=== PATIENT | female | born 1930 | race Caucasian/White ===

== ENCOUNTER 2018-08-06 22:16 | Observation (INO) ==
--- NOTE | 2018-08-06 22:40 | Emergency Department Note ---
Disposition Clinical Impression: CHF (congestive heart failure) Qualifiers: Heart failure type: unspecified Heart failure chronicity: acute on chronic Qualified Code(s): I50.9 - Heart failure, unspecified Disposition: Admitted As Inpatient Referrals: Jorge L Salter MD [Primary Care Provider] - Forms: ED Satisfaction Letter Time of Disposition: 01:13 General Adult HPI - General Chief complaint: ED Shortness of Breath/Dyspnea Stated complaint: "High BP/EJ/Weakness" Time Seen by Provider: 08/06/18 22:30 Source: family Mode of arrival: ambulatory Limitations: no limitations - History of Present Illness HPI Narrative: This is an 88-year-old female with a history of CHF brought to the emergency department by her grandson because of worsening shortness of breath starting about 7 days ago, and poorly controlled hypertension starting about 4 weeks ago. Her grandson states that she was taken off amlodipine because of pedal edema, in the edema has improved but her blood pressure has not been well controlled. He states that she has dyspnea on exertion after walking only about 30 feet. Pain Scale: 8 - Related Data Home Medications Medication Instructions Recorded Confirmed Amlodipine [Norvasc] 2.5 mg PO DAILY 10/04/15 04/20/16 Aspirin [Adult Low Dose Aspirin EC] 81 mg PO DAILY 10/04/15 04/20/16 Levothyroxine [Synthroid] [place] [address]/04/15 04/20/16 Metoprolol [Lopressor] 12.5 mg PO BID 10/04/15 04/20/16 [place]-3S/Dha/Epa/Fish Oil [Fish 1,200 mg PO DAILY 10/04/15 04/20/16 Oil 1,200 mg Softgel] Isosorbide MONOnitrate [Isosorbide 30 mg PO HS 10/29/15 04/20/16 Mononitrate] Cholecalciferol (Vitamin D3) 1,000 unit PO DAILY 03/23/16 04/20/16 [Vitamin D3] Clopidogrel [Plavix] 75 mg PO DAILY 04/20/16 04/20/16 Ferrous Sulfate [Iron Supplement] 325 mg PO DAILY 04/20/16 04/20/16 Furosemide [Lasix] 20 mg PO BID PRN 04/20/16 04/20/16 Previous Rx's Medication Instructions Recorded Omeprazole [PriLOSEC] 40 mg PO Q12HR #60 capsule. 03/27/16 Allergies Allergy/AdvReac Type Severity Reaction Status Date / Time [id number] Reductase Allergy Cramping Verified 03/23/16 17:29 Inhibitor of the [Statins] Muscles Sulfa (Sulfonamide Allergy See Verified 03/23/16 17:29 Antibiotics) Comments All systems ED: reviewed and negative except as stated. Cardiovascular: Reports: dyspnea on exertion, edema, other (Poorly controlled hypertension) Respiratory: Reports: dyspnea Past Medical History - Past Medical History Medical history: Reports: arthritis, CHF, coronary artery disease, GERD, hyperlipidemia, hypertension, myocardial infarction, renal disease, thyroid disease Surgical history: Reports: angioplasty/stent, cataract Psychiatric history: Reports: no psych history - Social History Smoking Status: Former smoker Smokeless Tobacco Status: No Alcohol use: Reports: none Drug use: Reports: none Physical Exam - General Limitations: no limitations General appearance: alert, in distress (In mild distress from shortness of breath) - Head Head exam: atraumatic, normocephalic, normal inspection - Eye Eye exam: Present: normal appearance, PERRL, EOMI - Chest Chest inspection: Present: normal inspection, symmetric chest wall rise - Respiratory Respiratory exam: Present: other (There are bibasilar crackles). Absent: respiratory distress, wheezes - Cardiovascular Cardiovascular exam: Present: regular rate, normal rhythm, normal heart sounds - Abdominal Exam Abdominal exam: Present: soft, Non-Tender. Absent: tenderness, distention, guarding, rebound, rigidity - Extremities Exam Extremities exam: Present: normal inspection, normal capillary refill, pedal edema (2+ pedal edema bilaterally at the malleoli, 1+ at the mid calf). Absent : tenderness - Neurological Exam Neurological exam: Present: alert, oriented X3 - Psychiatric Psychiatric exam: Present: normal affect, normal mood - Skin Skin exam: Present: warm, dry, intact, normal color Course Course Narrative: This is an 88-year-old female who clinically appears to be in CHF. Vital Signs Temperature 98.2 F 08/06/18 22:25 Pulse Rate 60 08/06/18 22:25 Respiratory Rate 16 08/06/18 22:25 Blood Pressure 200/101 08/06/18 22:25 O2 Sat by Pulse Oximetry 88 08/06/18 22:25 Temperature 98.2 F 08/06/18 22:31 Pulse Rate 64 08/07/18 01:04 Respiratory Rate 16 08/07/18 01:04 Blood Pressure 216/78 08/07/18 01:04 O2 Sat by Pulse Oximetry 95 08/07/18 01:04 Oxygen Delivery Oxygen Delivery Room Air Medical Decision Making - MDM Narrative Medical decision making narrative: This is an 88-year-old female with a CHF exacerbation Afterload reduction was attempted with sublingual nitroglycerin with essentially no success. As a result, she was switched to nitroglycerin infusion. Furosemide and enalaprilat were also given for afterload reduction and diuresis. I discussed her case with the on-call hospitalist, who accepted her for admission - Lab Data Result diagrams: 08/06/18 22:36 08/06/18 22:36 Lab Results 08/06/18 08/06/18 Range/Units 22:36 22:36 WBC 7.3 (4.3-11.1) K/mcL RBC 4.49 (3.82-4.97) M/mcL Hgb 13.9 (11.5-15.4) g/dL Hct 41.5 (35.3-44.9) % MCV 92.4 (83.0-100.0) fL MCH 31.0 (28.0-33.3) pg MCHC 33.5 (31.6-35.5) g/dL RDW 12.9 (11.5-14.5) % Plt Count 218 (140-400) K/mcL MPV 9.3 L (9.4-12.4) fL Immature Gran % 0.3 (0-4) % Seg Neutrophils % 51.8 % Lymphocytes % 33.1 % Monocytes % 10.6 % Eosinophils % 3.5 % Basophils % 0.7 % Neutrophils # 3.8 (1.6-8.9) K/mcL Lymphocytes # 2.4 (0.6-4.6) K/mcL Monocytes # 0.8 (0.0-1.3) K/mcL Eosinophils # 0.3 (0.0-0.6) K/mcL Basophils # 0.1 (0.0-0.2) K/mcL Sodium 133 L (136-145) mEq/L Potassium 4.3 (3.5-5.1) mEq/L Chloride 101 (98-107) mEq/L Carbon Dioxide 24 (23-29) mEq/L BUN 25 H (8-23) mg/dL Creatinine 0.99 (0.60-1.20) mg/dL Est GFR ( Amer) > 60 (> 60) Est GFR (Non-Af Amer) 53 L (> 60) BUN/Creatinine Ratio 25 (6-26) Glucose 110 H (70-105) mg/dL Calculated Osmolality 281 (280-300) Calcium 9.5 (8.6-10.3) mg/dL Troponin I < 0.03 (< 0.04) ng/mL - EKG Data EKG #1 EKG attestation: Yes I reviewed and interpreted this EKG. EKG results narrative: ECG showed sinus bradycardia, 49 bpm, left bundle branch block, slight ST depressions in leads 2 and aVF as well as V5 and V6, similar to prior dated 10/2015 Critical Care Time Critical Care Time: Yes Total Critical Care Time: 20 Attestation: 20 minutes of critical care time was invested independent of separately billable procedures
[2018-08-06] MEDS: Nitroglycerin 0.4 MG TAB.SUBL SL PRN ×3 (22:42→23:08)
[2018-08-06 23:06] LABS: Basophils # 0.1 K/mcL (0.0-0.2); Basophils % 0.7 %; Eosinophils # 0.3 K/mcL (0.0-0.6); Eosinophils % 3.5 %; Hematocrit 41.5 % (35.3-44.9); Hemoglobin 13.9 g/dL (11.5-15.4); Immature Granulocytes % 0.3 % (0-4); Lymphocytes # 2.4 K/mcL (0.6-4.6); Lymphocytes % 33.1 %; Mean Corpuscular HGB Conc 33.5 g/dL (31.6-35.5); Mean Corpuscular Volume 92.4 fL (83.0-100.0); Mean Platelet Volume 9.3 fL (9.4-12.4); Monocytes # 0.8 K/mcL (0.0-1.3); Monocytes % 10.6 %; Neutrophils # 3.8 K/mcL (1.6-8.9); Platelet Count 218 K/mcL (140-400); Red Blood Count 4.49 M/mcL (3.82-4.97); Red Cell Distribution Width 12.9 % (11.5-14.5); Segmented Neutrophils % 51.8 %
[2018-08-06 23:26] LABS: BUN/Creatinine Ratio 25 (6-26); Blood Urea Nitrogen 25 mg/dL (8-23); Calcium 9.5 mg/dL (8.6-10.3); Carbon Dioxide 24 mEq/L (23-29); Chloride 101 mEq/L (98-107); Glucose 110 mg/dL (70-105); Osmolality,Calculated 281 (280-300); Potassium 4.3 mEq/L (3.5-5.1); Sodium 133 mEq/L (136-145); eGFR For Non-African Americans 53 (> 60)
[2018-08-06 23:28] LABS: Troponin I < 0.03 ng/mL (< 0.04)
[2018-08-07] MEDS: Nitroglycerin 0.4 MG TAB.SUBL SL PRN (00:14)
[2018-08-07] MEDS ORDERED: Nitroglycerin 0.4 MG TAB.SUBL SL PRN (00:23)
[2018-08-07] MEDS ORDERED: Furosemide 40 MG/4 ML VIAL IVP ONE (00:24)
[2018-08-07] MEDS ORDERED: Nitroglycerin 25 MG/250 ML INFUS..BTL IVC SCH (01:15)
[2018-08-07] MEDS ORDERED: Naloxone 0.4 MG/ML INJ IVP PRN (01:20)
--- NOTE | 2018-08-07 01:35 | Internal Med History&Physical ---
<Eric Whitfield - Last Filed: 08/07/18 01:25> Date of Encounter: 08/07/18 Time of Encounter: 01:25 Internal Medicine - H&P: HPI Chief complaint: sob Admitted From: Home Plans for Post Hospital Care: Home History of present illness: Ms. Ross is a 88 year old female with hx of chf, cad, htn presents with cc of sob that started one week ago. Patient reports chornic LE edema for past couple years which has worsened over the last one month gradually. She reports orthopnea, cough, chest tightness, exertional dyspnea while waking a few feet and reports blurry vision, headache. She denies slurred speech, loss of balance , falls, weakness or numbness in any extremity but reports tingling in b/l fingertips. She take 40mg of lasix at home but only occasionally. Drinks 4x16 ounces of water daily and 4 cups of coffee. Her BP has been uncontrolled for the past month after she was taken off of amlodipine by her pcp because of worsening LE edema. Before stopping amlodipine BP was 140-150 systolics. On presentation today it is 200-220 systolic. She also is requiring O2. Patient was given vasotec and lasix in ED without response to BP and started on nitroglycerin drip. Past Med Surg Social Fam HX - Past Medical History Medical history: arthritis, CHF, coronary artery disease, GERD, hyperlipidemia, hypertension, myocardial infarction, renal disease, thyroid disease Additional medical history: vascular surgery at [facility] in October 2015 Psychiatric history: no psych history - Past Surgical History Surgical History: angioplasty/stent, cataract Additional surgical history: cataract surgery. - Social History Smoking Status: Former smoker Smokeless Tobacco Status: No Alcohol use: none Drug use: none - Family History Father Living Status: Hx Family Cardiac Disorders: Yes Internal Medicine - H&P: Meds Amlodipine [Norvasc] 2.5 mg PO DAILY 10/04/15 [History] Aspirin [Adult Low Dose Aspirin EC] 81 mg PO DAILY 10/04/15 [History] Levothyroxine [Synthroid] 75 mcg PO 0630 10/04/15 [History] Metoprolol [Lopressor] 12.5 mg PO BID 10/04/15 [History] [place]-3S/Dha/Epa/Fish Oil [Fish Oil 1,200 mg Softgel] 1,200 mg PO DAILY [History] Isosorbide MONOnitrate [Isosorbide Mononitrate] 30 mg PO HS 10/29/15 [History] Cholecalciferol (Vitamin D3) [Vitamin D3] 1,000 unit PO DAILY 03/23/16 [History] Omeprazole [PriLOSEC] 40 mg PO Q12HR #60 capsule. 03/27/16 [Rx] Clopidogrel [Plavix] 75 mg PO DAILY 04/20/16 [History] Ferrous Sulfate [Iron Supplement] 325 mg PO DAILY 04/20/16 [History] Furosemide [Lasix] 20 mg PO BID PRN 04/20/16 [History] 3 Allergy/AdvReac Type Severity Reaction Status Date / Time [id number] Reductase Allergy Cramping Verified 03/23/16 17:29 Inhibitor of the [Statins] Muscles Sulfa (Sulfonamide Allergy See Verified 03/23/16 17:29 Antibiotics) Comments All Systems PM: A 10-system review of systems was performed and is negative for pertinent findings except as documented above in the HPI. Review of systems: Constitutional: Denies fever, chills HEENT: Reports headache, blurry vision Denies trauma, eye discharge, ear pain, ear discharge neck pain, sore throat, rhinorrhea Heart: reports chest tightness and LE edema. Denies palpitations Lungs: reports shortness of breath cough Abdomen: Denies abdominal pain nausea vomiting diarrhea MSK: Denies back pain, falls, joint pain Kidney: Denies dysuria, hematuria Skin: Denies rash, ulcers Neuro: Denies numbness and tingling Psych: denies axniety, depression - Constitutional Vitals: Temp Pulse Resp BP Pulse Ox 98.2 F 64 16 216/78 95 08/06/18 22:31 08/07/18 01:04 08/07/18 01:04 08/07/18 01:04 08/07/18 01:04 Exam: General: pleasant, mild distress HEENT: Head atraumatic, normocephalic, EOMI, PERRL, absent ear discharge or trauma, Moist Mucous Membranes, uvula midline Neck: nontender to palpation, absent lymphadenopathy, Cardiovascualr: sinus bradycardia with no murmur, absent gallops or rubs, 3+ pedal edema b/l, radial pulses 2 out of 4 Lungs: b/l crackles, mild respiratory distress, tachypenia Abdomen: Soft nontender, nondistended positive bowel sounds, absent hepatomegaly Skin: warm and dry, absent rash, absent open wounds and nodules MSK: absent clubbing, cyanosis, joints without swelling Neuro: Cranial nerves II through XII intact, UE and LE sensation equal bilaterally except for decreased sensation in b/l fingertips, UE and LEstrength 4/5, alert oriented 3, He Psych: good insight and judgment Internal Med - H&P Results - Labs CBC & Chem 7: 08/06/18 22:36 08/06/18 22:36 - Assessment and plan (1) Acute respiratory failure with hypoxia Current Visit: Yes Status: Acute Assessment and plan: 2nd to acute on chornic CHF exacerbation, diastolic cxr shows enlarged heart with pulmonary edema and left pleural effusion. lung exam: bibasilar crackles requiring 1L O2 supplementation plan: continue O2 supplementation will start diuresis with lasix 40mg IV BID. (2) CHF exacerbation Current Visit: Yes Status: Acute Assessment and plan: acute on chronic diastolic chf echocardiogram 09/2015 showed LVEF 60% with normal LV structure and funciton, mild LV diastolic dysfunction, normal right ventricular structure, no pulmonary hypertension patient does not follow low salt fluid restricted diet tropoinin <0.03 EKG sinus bradycardia rate [address] depressions in II, II, V4,V5,V6 similar to EKG in 2016 order echocardiogram, fluid restricted diet, IV lasix, strict I/O cardiac diet. Qualifiers: Heart failure type: diastolic Qualified Code(s): I50.33 - Acute on chronic diastolic (congestive) heart failure (3) Hypertensive urgency Current Visit: Yes Status: Acute Assessment and plan: BP systolic 200s will start on nitro drip. goal BP is 180 in the next 4 hours. Will avoid drastic reduction. Continue home imdur and metoprolol. (4) CAD (coronary artery disease) Current Visit: Yes Status: Chronic Assessment and plan: hx of CAD s/p [place] 2007 with PCI x 1 stent continue aspirin, bblocker. not on statin due to muscle cramping Qualifiers: Coronary Disease-Associated Artery/Lesion type: [place] artery [place] vs. transplanted heart: [place] heart Associated angina: without angina Qualified Code(s): I25.10 - Atherosclerotic heart disease of [place] coronary artery without angina pectoris (5) CKD (chronic kidney disease), stage III Current Visit: Yes Status: Chronic Assessment and plan: stable repeat BMP (6) DVT prophylaxis Current Visit: Yes Status: Acute Assessment and plan: heparin SQ (7) Hypothyroidism Current Visit: Yes Status: Chronic Assessment and plan: continue home levothyroxine Qualifiers: Hypothyroidism type: unspecified Qualified Code(s): E03.9 - Hypothyroidism , unspecified - Time Spent With Patient Total time spent is greater than 50% in coordination of care (as documented) at patient's floor/unit and/or counseling patient: <Carlos Humphries - Last Filed: 08/07/18 02:39> Date of Encounter: 08/07/18 Internal Medicine - H&P: HPI History of present illness: Ms. Ross is a 88 year old female All Systems PM: A 10-system review of systems was performed and is negative for pertinent findings except as documented above in the HPI. - Constitutional Vitals: Temp Pulse Resp BP Pulse Ox 98.2 F 64 16 216/78 95 08/06/18 22:31 08/07/18 01:04 08/07/18 01:04 08/07/18 01:04 08/07/18 01:04 Internal Med - H&P Results - Labs CBC & Chem 7: 08/06/18 22:36 08/06/18 22:36 Labs: Short CBC 08/06/18 Range/Units 22:36 WBC 7.3 (4.3-11.1) K/mcL Hgb 13.9 (11.5-15.4) g/dL Hct 41.5 (35.3-44.9) % Plt Count 218 (140-400) K/mcL Neutrophils # 3.8 (1.6-8.9) K/mcL BMP 08/06/18 22:36 Sodium 133 L Potassium 4.3 Chloride 101 Carbon Dioxide 24 BUN 25 H Creatinine 0.99 Glucose 110 H Calcium 9.5 Cardiac Enzymes 08/06/18 Range/Units 22:36 Troponin I < 0.03 (< 0.04) ng/mL - Impressions ITS Impressions Chest X-Ray 08/06/18 22:36 IMPRESSION: CHF with left pleural effusion. Prominent right hilum which may reflect adenopathy. D/ / Codey Steen MD / Codey Steen MD Interpreting Provider: Codey Steen MD - Time Spent With Patient Total time spent is greater than 50% in coordination of care (as documented) at patient's floor/unit and/or counseling patient: - Attending Attestation Patient seen and examined. Chart reviewed. Case discussed with resident. Agree with assessment and plan. In short patient is a 88-year-old female with past medical history of hypertension, CK D stage III, coronary artery disease status post PCI approximately 10 years ago, and right carotid endarterectomy in 2016 and hypothyroidism who presents to the ED due to worsening shortness of breath over the past week. Patient also has been having difficulty controlling her blood pressure over the past month since being taken off amlodipine due to side effects of lower extremity edema. Patient has noted progressive dyspnea on exertion. Although she states she is compliant with her medications, she has not taken her Lasix for the past 2 days. Upon arrival patient's blood pressure was noted to be elevated with a systolic of 200 and diastolic of 101. Her systolic blood pressure remained elevated above 200 over the next 2 hours in the ED. Patient received 1 time dose of Vasotec 2 doses of nitroglycerin and 40 mg of Lasix IV push. X-ray showed signs of vascular congestion with left -sided pleural effusion. We will admit patient for hypertensive urgency secondary to medication noncompliance and mild CHF exacerbation. Patient we placed on a nitro drip as systolic blood pressure still remains over 200. We will reduce by 20% in the next several hours and then 5 -15% over the next 24 hours. Echo in the a.m.
[2018-08-07] MEDS ORDERED: 0.9 % Sodium Chloride 500 ML ONE (02:30)
[2018-08-07] MEDS: Nitroglycerin 25 MG/250 ML INFUS..BTL IVC SCH ×2 (02:31→03:40)
[2018-08-07] MEDS: *HR* Heparin 5,000 UNIT/ML VIAL SQ SCH ×5 (02:32→21:49)
[2018-08-07] MEDS ORDERED: *HR* Atropine Sulfate 1 MG/10 ML SYRINGE ONE (03:11)
[2018-08-07] MEDS ORDERED: 0.9 % Sodium Chloride 250 ML IVC ONE (03:32)
[2018-08-07 04:02] LABS: BUN/Creatinine Ratio 23 (6-26); Blood Urea Nitrogen 23 mg/dL (8-23); Calcium 9.4 mg/dL (8.6-10.3); Carbon Dioxide 28 mEq/L (23-29); Chloride 99 mEq/L (98-107); Glucose 113 mg/dL (70-105); Magnesium 2.1 mg/dL (1.6-2.6); Osmolality,Calculated 284 (280-300); Phosphorous 3.6 mg/dL (2.7-4.5); Potassium 3.9 mEq/L (3.5-5.1); Sodium 135 mEq/L (136-145); eGFR For Non-African Americans 51 (> 60)
--- NOTE | 2018-08-07 04:02 | Event Note ---
Date of Encounter: 08/07/18 Time of Encounter: 03:50 Patient on arrival to the floor was bradycardic into the 30s at time. Her BP was 180 systolic on arrival to the floor. She had received four doses of 0.4mg nitroglycerin, vasotec 1.25mg IV, and lasix 40mg IV in the ED. Nitroglycerin drip was ordered but was not started yet. Patients BP was rechecked every 5 minutes and continued to trend down. BP dropped to 100 systolic before it increased to 130systolic without any intervention. Patient reported having urinated considerably in ED and had additional 450cc output on the floor. EKG showed sinus bradycardia. lung sounds were CTAB as compared to having b/l crackles on initial examination in the ED. Nitroglycerin drip, metoprolol were d /c. Lasix was changed to daily from bid. Stat electrolytes were obtained.
[2018-08-07] MEDS: Aspirin 81 MG TAB.CHEW PO SCH (07:57)
[2018-08-07] MEDS: Furosemide 40 MG/4 ML VIAL IVP SCH (07:58)
[2018-08-07] MEDS ORDERED: Furosemide 40 MG/4 ML VIAL IVP SCH (09:00)
--- NOTE | 2018-08-07 10:37 | Internal Med Progress Note ---
Hospitalist Progress Note - Encounter Date of Encounter: 08/07/18 Time of Encounter: 09:15 - Subjective Interval History: Patient is feeling better today. She did have chest tightness last night but since then has not been having any such symptoms. Her breathing is also better. Her lower extremities continue to be swollen. Denies any orthopnea or PND. No dizziness or lightheadedness. No blurred vision or headache at this time. - Exam Vitals: Temp Pulse Resp BP Pulse Ox 98.2 F 68 18 204/90 93 08/07/18 08:13 08/07/18 08:13 08/07/18 08:13 08/07/18 08:13 08/07/18 08:13 Exam: General: Patient is alert, no acute distress, oriented x 3 Respiratory: Good respiratory effort. Normal breath sounds. No wheezing or crackles. Cardiovascular: Regular rate and rhythm. s1 and s2 normal No clicks, rubs, gallops, or murmurs. Bilateral pitting pedal edema up to the knee. Abdomen: Abdomen is soft, nontender. Bowel sounds are present Musculoskeletal: Spontaneously moving all extremities Skin: warm, dry, intact. Neuro: Alert oriented x 3 normal cranial nerves, no focal deficits - Assessment and Plan (1) CHF exacerbation Current Visit: Yes Status: Acute Assessment and Plan: Acute on chronic diastolic congestive heart failure. Continue intravenous Lasix. Monitor input and output. So far patient has had good urine output. She does continue to have lower extremity edema. Follow 2-D echocardiogram results. Moderate risk for complications. (2) Acute respiratory failure with hypoxia Current Visit: Yes Status: Acute Assessment and Plan: Improving. Patient currently on room air. (3) Hypertensive urgency Current Visit: Yes Status: Acute Assessment and Plan: Blood pressure had improved overnight but is elevated this morning. We will start lisinopril. Hold Lopressor for now due to bradycardia. We will also place patient on intravenous medications to control blood pressure if persistently elevated above 160. (4) CAD (coronary artery disease) Current Visit: Yes Status: Chronic Assessment and Plan: With episodes of chest tightness on presentation. Likely related to hypertensive urgency. Troponins have been negative. Awaiting 2-D echocardiogram. Continue aspirin. Patient not on statins due to allergic reaction. (5) CKD (chronic kidney disease), stage III Current Visit: Yes Status: Chronic Assessment and Plan: Stable renal function. I do expect creatinine to rise as she is receiving intravenous Lasix. We will monitor closely. (6) Hypothyroidism Current Visit: Yes Status: Chronic Assessment and Plan: continue levothyroxine. DVT Prophylaxis: On subcutaneous heparin - Time Spent with Patient Total time spent is greater than 50% in coordination of care (as documented) at patient's floor/unit and/or counseling patient: Internal Medicine: Result - Labs CBC & Chem 7: 08/06/18 22:36 08/07/18 03:32 Labs: BMP 08/07/18 03:32 Sodium 135 L Potassium 3.9 Chloride 99 Carbon Dioxide 28 BUN 23 Creatinine 1.02 Glucose 113 H Calcium 9.4 Consult Discharge Plan - Plan Referrals: Jorge L Salter MD [Primary Care Provider] - (1) CHF exacerbation Qualifiers: Heart failure type: diastolic Qualified Code(s): I50.33 - Acute on chronic diastolic (congestive) heart failure (4) CAD (coronary artery disease) Qualifiers: Coronary Disease-Associated Artery/Lesion type: [place] artery [place] vs. transplanted heart: [place] heart Associated angina: without angina Qualified Code(s): I25.10 - Atherosclerotic heart disease of [place] coronary artery without angina pectoris (6) Hypothyroidism Qualifiers: Hypothyroidism type: unspecified Qualified Code(s): E03.9 - Hypothyroidism, unspecified
[2018-08-07] MEDS ORDERED: Perflutren Lipid Microsphere 1.3 ML in 0.9 % Sodium Chloride 8.7 ML IVP ONE (12:10)
[2018-08-07] MEDS ORDERED: Isosorbide MONOnitrate (24 HR) 30 MG TAB.ER.24H PO SCH (21:00)
[2018-08-08] MEDS: *HR* Heparin 5,000 UNIT/ML VIAL SQ SCH ×2 (05:07→14:40)
[2018-08-08] MEDS: Aspirin 81 MG TAB.CHEW PO SCH (08:39)
[2018-08-08] MEDS: Furosemide 40 MG/4 ML VIAL IVP SCH (08:39)
[2018-08-08 09:11] LABS: VBG Ionized Calcium 1.14 mmol/L (1.15-1.35)
--- NOTE | 2018-08-08 11:48 | Discharge Summary ---
- NOTES TO OUTPATIENT PROVIDER Notes to Outpatient Provider: Patient with History of coronary artery disease, hypertension, congestive heart failure was hospitalized here with chest tightness, orthopnea and exertional dyspnea along with lower extremity edema concerning for acute on chronic congestive heart failure. Patient also had hypertensive urgency with blood pressure in the 200s systolic. She was treated with IV diuretics and nitroglycerin in the ER. Her blood pressure improved. With diuresis, her symptoms of dyspnea and orthopnea have also improved. Presently she is doing much better and is clinically stable for discharge. She will be discharged on and will follow up with her primary care provider and kiln tender for further management of her chronic medical conditions. Date of Encounter: 08/08/18 Time of Encounter: 09:25 - Discharge Diagnosis (1) CHF exacerbation Priority: Primary Status: Acute Qualifiers: Heart failure type: diastolic Qualified Code(s): I50.33 - Acute on chronic diastolic (congestive) heart failure (2) Acute respiratory failure with hypoxia Priority: Secondary Status: Acute (3) Hypertensive urgency Priority: Secondary Status: Acute (4) CAD (coronary artery disease) Priority: Secondary Status: Chronic Qualifiers: Coronary Disease-Associated Artery/Lesion type: minto artery [place] vs. transplanted heart: minto heart Associated angina: without angina Qualified Code(s): I25.10 - Atherosclerotic heart disease of minto coronary artery without angina pectoris (5) CKD (chronic kidney disease), stage III Priority: Secondary Status: Chronic (6) Hypothyroidism Priority: Secondary Status: Chronic Qualifiers: Hypothyroidism type: unspecified Qualified Code(s): E03.9 - Hypothyroidism , unspecified Hospital course: Ms. Ross is a 88 year old female Patient with History of coronary artery disease, hypertension, congestive heart failure was hospitalized here with chest tightness, orthopnea and exertional dyspnea along with lower extremity edema concerning for acute on chronic congestive heart failure. Patient also had hypertensive urgency with blood pressure in the 200s systolic. She was treated with IV diuretics and nitroglycerin in the ER. Her blood pressure improved. With diuresis, her symptoms of dyspnea and orthopnea have also improved. Presently she is doing much better and is clinically stable for discharge. She will be discharged on and will follow up with her primary care provider and kiln tender for further management of her chronic medical conditions. Patient does have intermittent bradycardia and so her beta derrick dosage has been decreased to 12.5 mg twice daily of Lopressor. In order to control her blood pressure better, I am also placing her on lisinopril 10 mg daily. Today echocardiogram done here showed EF of 50-55% with moderate left ventricle and diastolic dysfunction. Discharge discussed with: patient, nurse - Time Spent with Patient Total time spent providing and/or coordinating discharge services: Greater than 30 minutes (35 min) - Discharge Medications Prescriptions: Furosemide [Lasix] 20 mg PO BID #60 tablet Lisinopril [Zestril] 10 mg PO DAILY #30 tablet Metoprolol [Lopressor] 12.5 mg PO BID #30 tablet Home Medications: Aspirin [Adult Low Dose Aspirin EC] 81 mg PO DAILY 10/04/15 [History] [place]-3S/Dha/Epa/Fish Oil [Fish Oil 1,200 mg Softgel] 1,200 mg PO DAILY [History] Isosorbide MONOnitrate [Isosorbide Mononitrate] 30 mg PO HS 10/29/15 [History] Cholecalciferol (Vitamin D3) [Vitamin D3] 1,000 unit PO DAILY 03/23/16 [History] Omeprazole [PriLOSEC] 40 mg PO Q12HR #60 capsule. 03/27/16 [Rx] Ferrous Sulfate [Iron Supplement] 325 mg PO DAILY 04/20/16 [History] Levothyroxine [[place]throid] [place] [address]/07/18 [History] Furosemide [Lasix] 20 mg PO BID #60 tablet 08/08/18 [Rx] Lisinopril [Zestril] 10 mg PO DAILY #30 tablet 08/08/18 [Rx] Metoprolol [Lopressor] 12.5 mg PO BID #30 tablet 08/08/18 [Rx] Allergies/Adverse Reactions: 3 Allergy/AdvReac Type Severity Reaction Status Date / Time [id number]-Fsj-Lef Reductase Allergy Cramping Verified 03/23/16 17:29 Inhibitor of the [Statins] Muscles Sulfa (Sulfonamide Allergy See Verified 03/23/16 17:29 Antibiotics) Comments Date of admission: 08/07/18 01:16 Primary care physician: Jorge L Salter MD Consults: 08/07/18 02:45 Consult to Student Education Specialist [CONS] Routine Reason for SW Consult: age. home alone Discharging clinician: Srujan Ameda Anticipated date of discharge: 08/08/18 - Constitutional Vitals: Temp Pulse Resp BP Pulse Ox 98.2 F 74 18 151/80 95 08/08/18 11:02 08/08/18 11:02 08/08/18 11:02 08/08/18 11:02 08/08/18 11:02 General appearance: Present: mild distress, A&O X 3, pleasant, answers questions appropriately Exam: . - Respiratory Respiratory exam: Present: CTAB. Absent: accessory muscle use, rales, rhonchi, wheezes - Cardiovascular Cardiovascular exam: Present: RRR, +S1, +S2. Absent: diastolic murmur, gallop, rubs, systolic murmur - GI/Abdominal GI/Abdominal exam: Present: normal bowel sounds, soft, no peritoneal signs. Absent: distended, tenderness - Extremities Exam Extremities exam: Present: pedal edema (Bilateral pitting pedal edema), warm, radial pulses palpable and symmetrical. Absent: calf tenderness, cyanotic - Patient Status Disposition: Home, Self-Care Condition: Good Functional capacity at discharge: independent ambulation Overall status at discharge: patient is progressing back to baseline - Discharge Instructions Instructions: Acute Respiratory Distress Syndrome (DC), Heart Failure (DC) Follow Up With: Jorge L Salter MD [Primary Care Provider] - 08/15/18 10:15 am Santiago Pedro DO [Partnered Physician] - (In 1-2 weeks for congestive heart failure) - Diet and Activity Activity: increase activity as tolerated Diet: low fat, low cholesterol, low salt diet, other (Fluid restriction to 1.5 L per day)
[2018-08-08 15:24] VITALS: BP 150/82
--- NOTE | 2018-08-09 16:09 | Electrocardiograph Report ---
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
--- NOTE | 2018-08-09 16:16 | Electrocardiograph Report ---
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
== END 2018-08-08 18:57 | disposition home or self-care (01) ==
LOC: EMEROOARM 22:16 → 2NNU 22:16 → SUATTDRO 08-07 01:16 → 2NNU 08-07 02:15
PROVIDERS: ADMIT Internal Medicine; ATTEND Internal Medicine

== ENCOUNTER 2021-04-10 23:09 | Observation (INO) ==
[2021-04-10 23:57] LABS: Basophils # 0.1 K/mcL (0.0-0.2); Basophils % 0.7 %; Eosinophils # 0.4 K/mcL (0.0-0.6); Eosinophils % 4.3 %; Hemoglobin 9.6 g/dL (11.5-15.4); Immature Granulocytes % 0.3 % (0-4); Lymphocytes # 2.9 K/mcL (0.6-4.6); Lymphocytes % 31.9 %; Mean Corpuscular HGB Conc 33.1 g/dL (31.6-35.5); Mean Corpuscular Hemoglobin 30.5 pg (28.0-33.3); Mean Corpuscular Volume 92.1 fL (83.0-100.0); Monocytes # 0.9 K/mcL (0.0-1.3); Monocytes % 10.3 %; Neutrophils # 4.7 K/mcL (1.6-8.9); Platelet Count 303 K/mcL (140-400); Red Blood Count 3.15 M/mcL (3.82-4.97); Red Cell Distribution Width 13.5 % (11.5-14.5); Segmented Neutrophils % 52.5 %; White Blood Count 8.9 K/mcL (4.3-11.1)
[2021-04-11 00:13] LABS: BUN/Creatinine Ratio 25 (6-26); Blood Urea Nitrogen 27 mg/dL (8-23); Calcium 8.9 mg/dL (8.6-10.3); Carbon Dioxide 24 mEq/L (23-29); Chloride 98 mEq/L (98-107); Glucose 119 mg/dL (70-105); Osmolality,Calculated 274 (280-300); Potassium 4.3 mEq/L (3.5-5.1); Sodium 129 mEq/L (136-145); eGFR For African Americans 57 (> 60); eGFR For Non-African Americans 47 (> 60)
[2021-04-11 00:14] LABS: Troponin I < 0.03 ng/mL (< 0.04)
[2021-04-11 01:24] LABS: Adenovirus Not Detected (Not Detect); Bordetella Pertussis Not Detected (Not Detect); Chlamydophila pneumoniae Not Detected (Not Detect); Coronavirus 229E Not Detected (Not Detect); Coronavirus HKU1 Not Detected (Not Detect); Coronavirus NL63 Not Detected (Not Detect); Coronavirus OC43 Not Detected (Not Detect); Human Metapneumovirus Not Detected (Not Detect); Human Rhinovirus/Enterovirus Not Detected (Not Detect); Influenza A Subtype 2009 H1 Not Detected (Not Detect); Influenza B Not Detected (Not Detect); Mycoplasma pneumoniae Not Detected (Not Detect); Parainfluenza Virus 1 Not Detected (Not Detect); Parainfluenza Virus 2 Not Detected (Not Detect); Parainfluenza Virus 3 Not Detected (Not Detect); Parainfluenza Virus 4 Not Detected (Not Detect); Respiratory Syncytial Virus Not Detected (Not Detect); SARS-CoV-2 Not Detected (Not Detect)
[2021-04-11] MEDS ORDERED: Isovue-370 500 ML BOTTLE IVP ONE (01:55)
[2021-04-11] MEDS ORDERED: Ipratropium/Albuterol Neb 3 ML IH ONE (03:17)
[2021-04-11] MEDS ORDERED: methylPREDNISolone 125 MG/2 ML VIAL IVP ONE (03:17)
[2021-04-11] MEDS ORDERED: Naloxone 0.4 MG/ML INJ IVP PRN (05:07)
[2021-04-11] MEDS ORDERED: Acetaminophen 325 MG TABLET PO PRN (05:07)
[2021-04-11] MEDS ORDERED: Ondansetron ODT 4 MG TAB.RAPDIS SL PRN (05:07)
[2021-04-11] MEDS ORDERED: Ipratropium/Albuterol Neb 3 ML IH PRN (05:12)
[2021-04-11] MEDS ORDERED: Perflutren Lipid Microsphere 1.3 ML in 0.9 % Sodium Chloride 8.7 ML IVP PRN (05:17)
[2021-04-11 06:10] LABS: Basophils # 0.1 K/mcL (0.0-0.2); Basophils % 0.6 %; Eosinophils # 0.2 K/mcL (0.0-0.6); Eosinophils % 2.1 %; Hemoglobin 10.2 g/dL (11.5-15.4); Immature Granulocytes % 0.3 % (0-4); Lymphocytes % 22.6 %; Mean Corpuscular HGB Conc 32.9 g/dL (31.6-35.5); Mean Corpuscular Hemoglobin 30.5 pg (28.0-33.3); Mean Corpuscular Volume 92.8 fL (83.0-100.0); Mean Platelet Volume 8.6 fL (9.4-12.4); Monocytes # 0.4 K/mcL (0.0-1.3); Neutrophils # 6.1 K/mcL (1.6-8.9); Platelet Count 314 K/mcL (140-400); Red Blood Count 3.34 M/mcL (3.82-4.97); Red Cell Distribution Width 13.5 % (11.5-14.5); Segmented Neutrophils % 70.4 %; White Blood Count 8.7 K/mcL (4.3-11.1)
[2021-04-11] MEDS: Azithromycin 500 MG in 0.9 % Sodium Chloride 250 ML IVPB SCH (06:11)
[2021-04-11 06:34] LABS: Alanine Aminotransferase 11 Units/L (7-52); Albumin 3.9 g/dL (3.5-5.7); Albumin/Globulin Ratio 1.3 (1.1-2.2); Alkaline Phosphatase 48 Units/L (34-104); Aspartate Amino Transferase 18 Units/L (13-39); BUN/Creatinine Ratio 26 (6-26); Bilirubin,Total 0.6 mg/dL (0.3-1.0); Blood Urea Nitrogen 24 mg/dL (8-23); Calcium 9.3 mg/dL (8.6-10.3); Carbon Dioxide 23 mEq/L (23-29); Chloride 99 mEq/L (98-107); Globulin 2.9 g/dL (2.4-3.5); Glucose 131 mg/dL (70-105); Osmolality,Calculated 276 (280-300); Potassium 4.3 mEq/L (3.5-5.1); Prothrombin Time 11.5 Seconds (9.4-12.1); Sodium 130 mEq/L (136-145); Total Protein 6.8 g/dL (6.4-8.9); eGFR For African Americans > 60 (> 60); eGFR For Non-African Americans 58 (> 60)
[2021-04-11 06:48] LABS: Thyroid Stimulating Hormone 2.373 mcIU/mL (0.340-5.600)
[2021-04-11 07:15] LABS: Bacteria,Urine Few per hpf (None-Few); Bilirubin,Urine Negative (Negative); Blood,Urine Small (Negative); Clarity,Urine Clear (Clear); Color,Urine Light-Yellow (Yellow); Glucose,Urine (UA) Normal (Normal); Ketones,Urine Negative (Negative); Leukocyte Esterase,Urine Large (Negative); Nitrite,Urine Negative (Negative); PH,Urine 6.5 pH Units (5.0-8.0); Protein,Urine Trace mg/dL (Neg-Trace); Specific Gravity,Urine > 1.030 (1.010-1.025); Squamous Epithelial Cell,Urine Few per hpf (None-Few); Urobilinogen,Urine Normal (Normal); WBC,Urine 30-50 per hpf (0-3)
[2021-04-11] MEDS ORDERED: MethylPREDNISolone 40 MG/ML VIAL IVP SCH (11:00)
[2021-04-11] MEDS: *HR* Enoxaparin 30 MG/0.3 ML SYRINGE SQ SCH (12:05)
[2021-04-12 02:37] LABS: Basophils % 0.1 %; Hematocrit 30.8 % (35.3-44.9); Hemoglobin 10.3 g/dL (11.5-15.4); Immature Granulocytes % 0.6 % (0-4); Lymphocytes # 3.2 K/mcL (0.6-4.6); Lymphocytes % 29.8 %; Mean Corpuscular HGB Conc 33.4 g/dL (31.6-35.5); Mean Corpuscular Hemoglobin 30.3 pg (28.0-33.3); Mean Corpuscular Volume 90.6 fL (83.0-100.0); Monocytes % 9.2 %; Neutrophils # 6.4 K/mcL (1.6-8.9); Platelet Count 362 K/mcL (140-400); Red Cell Distribution Width 13.3 % (11.5-14.5); Segmented Neutrophils % 60.3 %; White Blood Count 10.6 K/mcL (4.3-11.1)
[2021-04-12 02:57] LABS: BUN/Creatinine Ratio 29 (6-26); Blood Urea Nitrogen 26 mg/dL (8-23); Calcium 9.2 mg/dL (8.6-10.3); Carbon Dioxide 24 mEq/L (23-29); Chloride 97 mEq/L (98-107); Glucose 125 mg/dL (70-105); Osmolality,Calculated 274 (280-300); Potassium 4.5 mEq/L (3.5-5.1); Sodium 129 mEq/L (136-145); eGFR For African Americans > 60 (> 60); eGFR For Non-African Americans 60 (> 60)
[2021-04-12] MEDS ORDERED: MethylPREDNISolone 40 MG/ML VIAL IVP SCH (09:00)
[2021-04-12] MEDS: Azithromycin 500 MG in 0.9 % Sodium Chloride 250 ML IVPB SCH (09:08)
[2021-04-12] MEDS: amLODIPine 5 MG TABLET PO SCH (09:16)
[2021-04-12] MEDS: lisinopriL 10 MG TABLET PO SCH (09:17)
[2021-04-12] MEDS: Nystatin POWDER 30 GM BOTTLE TP SCH ×3 (09:17→21:53)
[2021-04-12] MEDS: *HR* Enoxaparin 30 MG/0.3 ML SYRINGE SQ SCH (09:18)
[2021-04-12] MEDS ORDERED: Fluticasone Propionate Nasal 50 MCG/SPRAY BOTTLE NS PRN (13:51)
[2021-04-12] MEDS ORDERED: Perflutren Lipid Microsphere 1.3 ML in 0.9 % Sodium Chloride 8.7 ML IVP PRN (15:35)
[2021-04-12] MEDS: Isosorbide MONOnitrate (24 HR) 30 MG TAB.ER.24H PO SCH (17:46)
[2021-04-12] MEDS: Furosemide 20 MG/2 ML VIAL IVP ONE (19:36)
[2021-04-13] MEDS: *HR* Enoxaparin 40 MG/0.4 ML SYRINGE SQ SCH (06:06)
[2021-04-13 06:55] LABS: BUN/Creatinine Ratio 26 (6-26); Blood Urea Nitrogen 24 mg/dL (8-23); Calcium 8.9 mg/dL (8.6-10.3); Carbon Dioxide 27 mEq/L (23-29); Chloride 99 mEq/L (98-107); Glucose 95 mg/dL (70-105); Osmolality,Calculated 276 (280-300); Phosphorous 2.8 mg/dL (2.7-4.5); Potassium 4.2 mEq/L (3.5-5.1); Sodium 131 mEq/L (136-145); eGFR For African Americans > 60 (> 60); eGFR For Non-African Americans 58 (> 60)
[2021-04-13] MEDS: lisinopriL 10 MG TABLET PO SCH (09:04)
[2021-04-13] MEDS: amLODIPine 5 MG TABLET PO SCH (09:04)
[2021-04-13] MEDS: Isosorbide MONOnitrate (24 HR) 30 MG TAB.ER.24H PO SCH (09:04)
[2021-04-13] MEDS: predniSONE 20 MG TABLET PO SCH (09:04)
[2021-04-13] MEDS: Azithromycin 500 MG in 0.9 % Sodium Chloride 250 ML IVPB SCH (09:05)
[2021-04-13] MEDS: Nystatin POWDER 30 GM BOTTLE TP SCH ×3 (09:11→21:52)
[2021-04-13] MEDS ORDERED: Furosemide 20 MG/2 ML VIAL IVP ONE (14:12)
[2021-04-13] MEDS: Furosemide 20 MG/2 ML VIAL IVP ONE (16:20)
[2021-04-14] MEDS: *HR* Enoxaparin 40 MG/0.4 ML SYRINGE SQ SCH (05:18)
[2021-04-14 06:38] LABS: BUN/Creatinine Ratio 29 (6-26); Blood Urea Nitrogen 27 mg/dL (8-23); Calcium 9.2 mg/dL (8.6-10.3); Carbon Dioxide 29 mEq/L (23-29); Chloride 96 mEq/L (98-107); Glucose 99 mg/dL (70-105); Osmolality,Calculated 277 (280-300); Phosphorous 3.2 mg/dL (2.7-4.5); Potassium 3.7 mEq/L (3.5-5.1); Sodium 131 mEq/L (136-145); eGFR For African Americans > 60 (> 60); eGFR For Non-African Americans 57 (> 60)
[2021-04-14] MEDS: lisinopriL 10 MG TABLET PO SCH (07:20)
[2021-04-14] MEDS: Isosorbide MONOnitrate (24 HR) 30 MG TAB.ER.24H PO SCH (07:20)
[2021-04-14] MEDS: Azithromycin 250 MG TABLET PO SCH (07:21)
[2021-04-14] MEDS: predniSONE 20 MG TABLET PO SCH (07:22)
[2021-04-14] MEDS: amLODIPine 5 MG TABLET PO SCH (07:22)
[2021-04-14] MEDS: Nystatin POWDER 30 GM BOTTLE TP SCH ×3 (07:24→22:23)
[2021-04-14] MEDS: Furosemide 20 MG TABLET PO SCH (10:00)
[2021-04-15] MEDS: *HR* Enoxaparin 40 MG/0.4 ML SYRINGE SQ SCH (06:01)
[2021-04-15] MEDS: Isosorbide MONOnitrate (24 HR) 30 MG TAB.ER.24H PO SCH (09:09)
[2021-04-15] MEDS: Furosemide 20 MG TABLET PO SCH (09:09)
[2021-04-15] MEDS: amLODIPine 5 MG TABLET PO SCH (09:10)
[2021-04-15] MEDS: predniSONE 20 MG TABLET PO SCH (09:10)
[2021-04-15] MEDS: lisinopriL 10 MG TABLET PO SCH (09:10)
[2021-04-15] MEDS: Azithromycin 250 MG TABLET PO SCH (09:11)
[2021-04-15] MEDS: Nystatin POWDER 30 GM BOTTLE TP SCH (09:13)
[2021-04-15 10:31] LABS: Adenovirus Not Detected (Not Detect); Bordetella Pertussis Not Detected (Not Detect); Chlamydophila pneumoniae Not Detected (Not Detect); Coronavirus 229E Not Detected (Not Detect); Coronavirus HKU1 Not Detected (Not Detect); Coronavirus NL63 Not Detected (Not Detect); Coronavirus OC43 Not Detected (Not Detect); Human Metapneumovirus Not Detected (Not Detect); Human Rhinovirus/Enterovirus Not Detected (Not Detect); Influenza A Subtype 2009 H1 Not Detected (Not Detect); Influenza B Not Detected (Not Detect); Mycoplasma pneumoniae Not Detected (Not Detect); Parainfluenza Virus 1 Not Detected (Not Detect); Parainfluenza Virus 2 Not Detected (Not Detect); Parainfluenza Virus 3 Not Detected (Not Detect); Parainfluenza Virus 4 Not Detected (Not Detect); Respiratory Syncytial Virus Not Detected (Not Detect)
[2021-04-15 10:33] LABS: SARS-CoV-2 DETECTED (Not Detect)
[2021-04-15 11:07] VITALS: BP 118/67
== END 2021-04-15 13:31 ==
LOC: EMEROOARM 23:09 → CDU 23:09 → SUATTDRO 04-11 04:57 → CDU 04-11 05:24 → 3BNU 04-11 10:28
PROVIDERS: ADMIT Student in an Organized Health Care Education/Training Program; ATTEND Internal Medicine

== ENCOUNTER 2021-04-16 05:38 | Observation (INO) ==
[2021-04-16] MEDS ORDERED: Ondansetron 4 MG/2 ML VIAL IVP PRN (09:19)
[2021-04-16] MEDS ORDERED: Naloxone 0.4 MG/ML INJ IVP PRN (09:19)
[2021-04-16] MEDS ORDERED: Fluticasone Propionate Nasal 50 MCG/SPRAY BOTTLE NS PRN (13:05)
[2021-04-16] MEDS: Azithromycin 250 MG TABLET PO SCH (14:55)
[2021-04-16] MEDS ORDERED: VISINE TEARS DROPS 15 ML BOTH EYES PRN (19:52)
[2021-04-16] MEDS ORDERED: CLEAR EYES NATURAL TEARS 15 ML BOTTLE BOTH EYES PRN (20:30)
[2021-04-17] MEDS: Isosorbide MONOnitrate (24 HR) 30 MG TAB.ER.24H PO SCH (08:16)
[2021-04-17] MEDS: Furosemide 20 MG TABLET PO SCH (08:16)
[2021-04-17] MEDS: lisinopriL 10 MG TABLET PO SCH (08:16)
[2021-04-17] MEDS: predniSONE 20 MG TABLET PO SCH (08:16)
[2021-04-17] MEDS: Azithromycin 250 MG TABLET PO SCH (08:16)
[2021-04-17] MEDS: amLODIPine 5 MG TABLET PO SCH (08:16)
[2021-04-17 10:13] LABS: Basophils # 0.1 K/mcL (0.0-0.2); Basophils % 0.6 %; Eosinophils # 0.2 K/mcL (0.0-0.6); Hemoglobin 11.4 g/dL (11.5-15.4); Immature Granulocytes % 0.8 % (0-4); Lymphocytes # 2.8 K/mcL (0.6-4.6); Lymphocytes % 23.1 %; Mean Corpuscular HGB Conc 32.6 g/dL (31.6-35.5); Mean Corpuscular Hemoglobin 30.6 pg (28.0-33.3); Mean Corpuscular Volume 94.1 fL (83.0-100.0); Mean Platelet Volume 8.4 fL (9.4-12.4); Monocytes # 1.2 K/mcL (0.0-1.3); Neutrophils # 7.6 K/mcL (1.6-8.9); Platelet Count 373 K/mcL (140-400); Red Blood Count 3.72 M/mcL (3.82-4.97); Red Cell Distribution Width 14.3 % (11.5-14.5); Segmented Neutrophils % 63.5 %; White Blood Count 11.9 K/mcL (4.3-11.1)
[2021-04-17 10:20] LABS: Prothrombin Time 11.5 Seconds (9.4-12.1)
[2021-04-17 10:23] LABS: Activated Partial Thrombo Time 25.2 Seconds (26.0-36.0)
[2021-04-17 10:33] LABS: BUN/Creatinine Ratio 32 (6-26); Blood Urea Nitrogen 31 mg/dL (8-23); Calcium 9.2 mg/dL (8.6-10.3); Carbon Dioxide 26 mEq/L (23-29); Chloride 98 mEq/L (98-107); Glucose 100 mg/dL (70-105); Osmolality,Calculated 277 (280-300); Phosphorous 3.6 mg/dL (2.7-4.5); Potassium 4.3 mEq/L (3.5-5.1); Sodium 130 mEq/L (136-145); eGFR For African Americans > 60 (> 60); eGFR For Non-African Americans 54 (> 60)
[2021-04-18] MEDS: Isosorbide MONOnitrate (24 HR) 30 MG TAB.ER.24H PO SCH (08:12)
[2021-04-18] MEDS: amLODIPine 5 MG TABLET PO SCH (08:12)
[2021-04-18] MEDS: Furosemide 20 MG TABLET PO SCH (08:12)
[2021-04-18] MEDS: Azithromycin 250 MG TABLET PO SCH (08:12)
[2021-04-18] MEDS: predniSONE 20 MG TABLET PO SCH (08:12)
[2021-04-18] MEDS: lisinopriL 10 MG TABLET PO SCH (08:12)
[2021-04-18] MEDS: *HR* HYDROcodone/Acet 5/325 mg TABLET PO PRN (20:30)
[2021-04-19] MEDS: *HR* HYDROcodone/Acet 5/325 mg TABLET PO PRN ×2 (02:30→20:00)
[2021-04-19 06:18] LABS: Hematocrit 28.7 % (35.3-44.9); Mean Corpuscular HGB Conc 32.1 g/dL (31.6-35.5); Mean Corpuscular Hemoglobin 30.5 pg (28.0-33.3); Mean Platelet Volume 8.5 fL (9.4-12.4); Platelet Count 319 K/mcL (140-400); Red Blood Count 3.02 M/mcL (3.82-4.97); Red Cell Distribution Width 14.6 % (11.5-14.5)
[2021-04-19 06:19] LABS: Hemoglobin 9.2 g/dL (11.5-15.4)
[2021-04-19 06:37] LABS: Calcium 8.8 mg/dL (8.6-10.3); Potassium 4.4 mEq/L (3.5-5.1)
[2021-04-19] MEDS: Isosorbide MONOnitrate (24 HR) 30 MG TAB.ER.24H PO SCH (09:07)
[2021-04-19] MEDS: Azithromycin 250 MG TABLET PO SCH (09:07)
[2021-04-19] MEDS: predniSONE 20 MG TABLET PO SCH (09:07)
[2021-04-19] MEDS: lisinopriL 10 MG TABLET PO SCH (09:07)
[2021-04-19] MEDS: Furosemide 20 MG TABLET PO SCH (09:08)
[2021-04-19] MEDS: amLODIPine 5 MG TABLET PO SCH (09:08)
[2021-04-19] MEDS: *HR* Heparin 5,000 UNIT/ML VIAL SQ SCH (18:48)
[2021-04-20] MEDS: *HR* Heparin 5,000 UNIT/ML VIAL SQ SCH ×2 (05:29→17:20)
[2021-04-20] MEDS: predniSONE 20 MG TABLET PO SCH (07:42)
[2021-04-20] MEDS: Furosemide 20 MG TABLET PO SCH (07:42)
[2021-04-20] MEDS: Isosorbide MONOnitrate (24 HR) 30 MG TAB.ER.24H PO SCH (07:42)
[2021-04-20] MEDS: lisinopriL 10 MG TABLET PO SCH (07:42)
[2021-04-20] MEDS: *HR* HYDROcodone/Acet 5/325 mg TABLET PO PRN (22:07)
[2021-04-21] MEDS: *HR* Heparin 5,000 UNIT/ML VIAL SQ SCH (06:48)
[2021-04-21] MEDS: Isosorbide MONOnitrate (24 HR) 30 MG TAB.ER.24H PO SCH (09:23)
[2021-04-21] MEDS: lisinopriL 10 MG TABLET PO SCH (09:23)
[2021-04-21] MEDS: predniSONE 20 MG TABLET PO SCH (09:23)
[2021-04-21] MEDS: Furosemide 20 MG TABLET PO SCH (09:23)
[2021-04-21 10:42] VITALS: BP 110/71
== END 2021-04-21 14:26 | disposition other institution (70) ==
LOC: CDU → SUATTDRO 08:08 → CDU 08:13 → 3ANU 16:24
PROVIDERS: ADMIT Internal Medicine; ATTEND Internal Medicine

== ENCOUNTER 2021-07-19 15:55 | Inpatient (IN) ==
[2021-07-19 17:06] LABS: Basophils % 0.3 %; Eosinophils # 0.1 K/mcL (0.0-0.6); Eosinophils % 0.5 %; Hematocrit 21.8 % (35.3-44.9); Hemoglobin 7.2 g/dL (11.5-15.4); Immature Granulocytes % 0.6 % (0-4); Lymphocytes # 2.5 K/mcL (0.6-4.6); Lymphocytes % 16.4 %; Mean Corpuscular Hemoglobin 29.6 pg (28.0-33.3); Mean Corpuscular Volume 89.7 fL (83.0-100.0); Mean Platelet Volume 9.4 fL (9.4-12.4); Monocytes # 0.9 K/mcL (0.0-1.3); Neutrophils # 11.6 K/mcL (1.6-8.9); Platelet Count 286 K/mcL (140-400); Red Blood Count 2.43 M/mcL (3.82-4.97); Red Cell Distribution Width 14.4 % (11.5-14.5); Segmented Neutrophils % 76.2 %; White Blood Count 15.2 K/mcL (4.3-11.1)
[2021-07-19 17:35] LABS: Calcium 9.4 mg/dL (8.6-10.3); Potassium 4.2 mEq/L (3.5-5.1); Troponin I 0.29 ng/mL (< 0.04)
[2021-07-19] MEDS ORDERED: *HR* Heparin 5,000 UNIT/ML VIAL IVP ONE (17:40)
[2021-07-19] MEDS ORDERED: *HR* Heparin 5,000 UNIT/ML VIAL IVP PRN ×2 (17:40)
[2021-07-19] MEDS ORDERED: Heparin 25,000UNIT/250ML 1/2NS 25,000 UNIT/250 ML IV.SOLN IVC SCH (17:45)
[2021-07-19 17:56] LABS: Hematocrit 21.7 % (35.3-44.9); Hemoglobin 7.2 g/dL (11.5-15.4); Mean Corpuscular HGB Conc 33.2 g/dL (31.6-35.5); Mean Corpuscular Hemoglobin 29.6 pg (28.0-33.3); Mean Corpuscular Volume 89.3 fL (83.0-100.0); Platelet Count 281 K/mcL (140-400); Red Blood Count 2.43 M/mcL (3.82-4.97); Red Cell Distribution Width 14.4 % (11.5-14.5); White Blood Count 14.8 K/mcL (4.3-11.1)
[2021-07-19 18:07] LABS: Prothrombin Time 11.2 Seconds (9.4-12.1)
[2021-07-19 18:09] LABS: Heparin anti-factor XA UFH < 0.04 IU/mL (0.30-0.70)
[2021-07-19 18:16] LABS: Bacteria,Urine Few per hpf (None-Few); Bilirubin,Urine Negative (Negative); Blood,Urine Small (Negative); Clarity,Urine Clear (Clear); Color,Urine Colorless (Yellow); Glucose,Urine (UA) Normal (Normal); Ketones,Urine Negative (Negative); Leukocyte Esterase,Urine Negative (Negative); Mucus,Urine Few per lpf (None-Few); Nitrite,Urine Negative (Negative); Protein,Urine Trace mg/dL (Neg-Trace); RBC,Urine 0-3 per hpf (0-3); Specific Gravity,Urine 1.015 (1.010-1.025); Squamous Epithelial Cell,Urine Few per hpf (None-Few); Urobilinogen,Urine Normal (Normal); WBC,Urine 0-3 per hpf (0-3)
[2021-07-19] MEDS ORDERED: Ondansetron 4 MG/2 ML VIAL IVP PRN (19:02)
[2021-07-19] MEDS ORDERED: Melatonin 3 MG TABLET PO PRN (19:02)
[2021-07-19] MEDS ORDERED: Naloxone 0.4 MG/ML INJ IVP PRN (19:02)
[2021-07-19] MEDS ORDERED: 0.9 % Sodium Chloride 1,000 ML IVC SCH (19:15)
[2021-07-19 20:31] LABS: Folate > 22.3 ng/mL (3.0-16.0); Vitamin B12 404 pg/mL (250-1100)
[2021-07-19 20:46] LABS: Thyroid Stimulating Hormone 6.064 mcIU/mL (0.340-5.600)
[2021-07-19] MEDS ORDERED: Pantoprazole 40 MG VIAL IVP SCH (22:00)
[2021-07-19] MEDS ORDERED: Aspirin 325 MG TABLET PO ONE (22:30)
[2021-07-19 23:19] LABS: Hematocrit 20.7 % (35.3-44.9); Hemoglobin 6.7 g/dL (11.5-15.4)
[2021-07-19 23:35] LABS: BUN/Creatinine Ratio 57 (6-26); Blood Urea Nitrogen 59 mg/dL (8-23); Carbon Dioxide 24 mEq/L (23-29); Chloride 98 mEq/L (98-107); Glucose 108 mg/dL (70-105); Osmolality,Calculated 285 (280-300); Potassium 4.3 mEq/L (3.5-5.1); Sodium 129 mEq/L (136-145); eGFR For African Americans > 60 (> 60); eGFR For Non-African Americans 50 (> 60)
[2021-07-20] MEDS: Acetaminophen 325 MG TABLET PO PRN (00:08)
[2021-07-20] MEDS: Clindamycin 600 MG/50 ML 600 MG/50 ML IV.SOLN IVPB SCH ×2 (00:09→09:33)
[2021-07-20] MEDS ORDERED: 0.9 % Sodium Chloride 250 ML ONE ×2 (01:17→17:49)
[2021-07-20 10:02] LABS: Hematocrit 21.8 % (35.3-44.9); Hemoglobin 7.2 g/dL (11.5-15.4); Mean Corpuscular Hemoglobin 29.6 pg (28.0-33.3); Mean Corpuscular Volume 89.7 fL (83.0-100.0); Platelet Count 260 K/mcL (140-400); Red Blood Count 2.43 M/mcL (3.82-4.97); Red Cell Distribution Width 14.6 % (11.5-14.5); White Blood Count 9.1 K/mcL (4.3-11.1)
[2021-07-20 10:19] LABS: BUN/Creatinine Ratio 49 (6-26); Blood Urea Nitrogen 49 mg/dL (8-23); Calcium 8.8 mg/dL (8.6-10.3); Carbon Dioxide 26 mEq/L (23-29); Chloride 101 mEq/L (98-107); Glucose 99 mg/dL (70-105); Osmolality,Calculated 287 (280-300); Potassium 4.3 mEq/L (3.5-5.1); Sodium 132 mEq/L (136-145); eGFR For African Americans > 60 (> 60); eGFR For Non-African Americans 52 (> 60)
[2021-07-20] MEDS ORDERED: D5% in Water 1,000 ML IVC PRN (11:07)
[2021-07-20] MEDS ORDERED: *HR* Dextrose 50 % in Water (Syg) 50 ML SYRINGE IVP PRN (11:07)
[2021-07-20] MEDS ORDERED: Dextrose Gel 15 GM/37.5 ML TUBE PO PRN ×2 (11:07)
[2021-07-20] MEDS: Pantoprazole 40 MG VIAL IVP SCH (13:10)
[2021-07-20] MEDS ORDERED: Perflutren Lipid Microsphere 1.3 ML in 0.9 % Sodium Chloride 8.7 ML IVP PRN (14:51)
[2021-07-20] MEDS ORDERED: *HR* Propofol 200 MG/20 ML VIAL IVP ONE ×3 (15:31→16:02)
[2021-07-20] MEDS ORDERED: Lidocaine -MPF 2% 5 ML VIAL ONE (15:32)
[2021-07-20] MEDS ORDERED: *HR* EPINEPHrine 1 MG/10 ML SYRINGE INTRATRACH PRN (15:46)
[2021-07-20] MEDS ORDERED: EPHEDrine 50 MG/ML VIAL ONE (15:47)
[2021-07-20] MEDS: Ipratropium/Albuterol Neb 3 ML IH SCH ×2 (21:34→21:45)
[2021-07-20] MEDS: Budesonide/Formoterol 160/4.5 1 PUFF INH IH SCH (21:45)
[2021-07-20 23:01] LABS: Hematocrit 23.9 % (35.3-44.9); Hemoglobin 7.8 g/dL (11.5-15.4)
[2021-07-21] MEDS: Pantoprazole 40 MG VIAL IVP SCH ×2 (00:13→12:04)
[2021-07-21] MEDS: Acetaminophen 325 MG TABLET PO PRN ×2 (01:46→17:03)
[2021-07-21] MEDS ORDERED: Ketorolac 15 MG/ML VIAL IVP ONE ×2 (03:00→20:44)
[2021-07-21] MEDS: Ipratropium/Albuterol Neb 3 ML IH SCH ×4 (05:04→21:14)
[2021-07-21 07:47] LABS: Hematocrit 22.5 % (35.3-44.9); Hemoglobin 7.6 g/dL (11.5-15.4); Mean Corpuscular HGB Conc 33.8 g/dL (31.6-35.5); Mean Corpuscular Hemoglobin 30.8 pg (28.0-33.3); Mean Corpuscular Volume 91.1 fL (83.0-100.0); Mean Platelet Volume 9.2 fL (9.4-12.4); Platelet Count 242 K/mcL (140-400); Red Blood Count 2.47 M/mcL (3.82-4.97); Red Cell Distribution Width 14.7 % (11.5-14.5)
[2021-07-21 08:13] LABS: BUN/Creatinine Ratio 35 (6-26); Blood Urea Nitrogen 33 mg/dL (8-23); Calcium 8.4 mg/dL (8.6-10.3); Carbon Dioxide 24 mEq/L (23-29); Chloride 102 mEq/L (98-107); Glucose 89 mg/dL (70-105); Magnesium 1.9 mg/dL (1.6-2.6); Osmolality,Calculated 279 (280-300); Phosphorous 3.3 mg/dL (2.7-4.5); Potassium 4.3 mEq/L (3.5-5.1); Sodium 131 mEq/L (136-145); eGFR For African Americans > 60 (> 60); eGFR For Non-African Americans 57 (> 60)
[2021-07-21] MEDS: Budesonide/Formoterol 160/4.5 1 PUFF INH IH SCH ×2 (10:39→21:14)
[2021-07-21] MEDS ORDERED: 0.9 % Sodium Chloride 250 ML ONE (16:43)
[2021-07-22 02:44] LABS: Basophils % 0.5 %; Eosinophils # 0.3 K/mcL (0.0-0.6); Eosinophils % 3.8 %; Hematocrit 25.1 % (35.3-44.9); Hemoglobin 8.5 g/dL (11.5-15.4); Immature Granulocytes % 0.9 % (0-4); Lymphocytes # 2.8 K/mcL (0.6-4.6); Lymphocytes % 36.7 %; Mean Corpuscular HGB Conc 33.9 g/dL (31.6-35.5); Mean Corpuscular Hemoglobin 30.8 pg (28.0-33.3); Mean Corpuscular Volume 90.9 fL (83.0-100.0); Monocytes # 0.7 K/mcL (0.0-1.3); Monocytes % 8.6 %; Neutrophils # 3.8 K/mcL (1.6-8.9); Platelet Count 226 K/mcL (140-400); Red Blood Count 2.76 M/mcL (3.82-4.97); Red Cell Distribution Width 14.5 % (11.5-14.5); Segmented Neutrophils % 49.5 %; White Blood Count 7.7 K/mcL (4.3-11.1)
[2021-07-22 03:06] LABS: BUN/Creatinine Ratio 27 (6-26); Blood Urea Nitrogen 24 mg/dL (8-23); Calcium 8.2 mg/dL (8.6-10.3); Carbon Dioxide 23 mEq/L (23-29); Chloride 101 mEq/L (98-107); Glucose 93 mg/dL (70-105); Magnesium 1.9 mg/dL (1.6-2.6); Osmolality,Calculated 272 (280-300); Phosphorous 3.5 mg/dL (2.7-4.5); Potassium 4.7 mEq/L (3.5-5.1); Sodium 129 mEq/L (136-145); eGFR For African Americans > 60 (> 60); eGFR For Non-African Americans > 60 (> 60)
[2021-07-22] MEDS: Ipratropium/Albuterol Neb 3 ML IH SCH ×3 (04:26→16:20)
[2021-07-22 08:36] VITALS: O2SAT 93
[2021-07-22] MEDS ORDERED: amLODIPine 5 MG TABLET PO SCH (09:00)
[2021-07-22] MEDS ORDERED: lisinopriL 10 MG TABLET PO SCH (09:00)
[2021-07-22] MEDS ORDERED: Isosorbide MONOnitrate (24 HR) 30 MG TAB.ER.24H PO SCH (09:00)
[2021-07-22] MEDS: Budesonide/Formoterol 160/4.5 1 PUFF INH IH SCH (11:45)
[2021-07-22 13:11] LABS: Adenovirus Not Detected (Not Detect); Bordetella Pertussis Not Detected (Not Detect); Chlamydophila pneumoniae Not Detected (Not Detect); Coronavirus 229E Not Detected (Not Detect); Coronavirus HKU1 Not Detected (Not Detect); Coronavirus NL63 Not Detected (Not Detect); Coronavirus OC43 Not Detected (Not Detect); Human Metapneumovirus Not Detected (Not Detect); Human Rhinovirus/Enterovirus Not Detected (Not Detect); Influenza A Subtype 2009 H1 Not Detected (Not Detect); Influenza B Not Detected (Not Detect); Mycoplasma pneumoniae Not Detected (Not Detect); Parainfluenza Virus 1 Not Detected (Not Detect); Parainfluenza Virus 2 Not Detected (Not Detect); Parainfluenza Virus 3 Not Detected (Not Detect); Parainfluenza Virus 4 Not Detected (Not Detect); Respiratory Syncytial Virus Not Detected (Not Detect); SARS-CoV-2 Not Detected (Not Detect)
[2021-07-22 15:16] VITALS: BP 104/48; PULSE 47; TEMP 97.9
== END 2021-07-22 16:45 | disposition other institution (70) | DRG 377 ==
LOC: 3ANU 15:55 → EMEROOARM 15:55 → SUATTDRO 18:34 → 3ANU 19:44
PROVIDERS: ADMIT Internal Medicine; ATTEND Internal Medicine

== ENCOUNTER 2021-07-27 16:14 | Observation (INO) ==
[2021-07-27] MEDS ORDERED: Naloxone 0.4 MG/ML INJ IVP PRN (21:35)
[2021-07-27] MEDS ORDERED: Melatonin 3 MG TABLET PO PRN (21:35)
[2021-07-27] MEDS ORDERED: polyethylene glycoL 3350 17 GM POWD.PACK PO PRN (22:25)
[2021-07-27] MEDS: Budesonide/Formoterol 160/4.5 1 PUFF INH IH SCH (23:19)
[2021-07-28] MEDS ORDERED: Ketorolac 15 MG/ML VIAL IVP ONE (00:48)
[2021-07-28 02:50] LABS: Hematocrit 26.7 % (35.3-44.9); Hemoglobin 8.8 g/dL (11.5-15.4); Mean Corpuscular Hemoglobin 30.8 pg (28.0-33.3); Mean Corpuscular Volume 93.4 fL (83.0-100.0); Mean Platelet Volume 8.8 fL (9.4-12.4); Platelet Count 333 K/mcL (140-400); Red Blood Count 2.86 M/mcL (3.82-4.97); Red Cell Distribution Width 15.5 % (11.5-14.5); White Blood Count 6.7 K/mcL (4.3-11.1)
[2021-07-28 03:12] LABS: Calcium 8.6 mg/dL (8.6-10.3); Potassium 4.6 mEq/L (3.5-5.1)
[2021-07-28] MEDS: *HR* Heparin 5,000 UNIT/ML VIAL SQ SCH ×2 (05:07→17:47)
[2021-07-28] MEDS: Budesonide/Formoterol 160/4.5 1 PUFF INH IH SCH ×2 (07:44→23:34)
[2021-07-28] MEDS: Aspirin Enteric Coated 81 MG Tablet PO SCH (09:43)
[2021-07-28] MEDS: lisinopriL 10 MG TABLET PO SCH (09:43)
[2021-07-29] MEDS: *HR* Heparin 5,000 UNIT/ML VIAL SQ SCH ×2 (05:44→16:30)
[2021-07-29] MEDS: Budesonide/Formoterol 160/4.5 1 PUFF INH IH SCH ×2 (07:47→21:14)
[2021-07-29] MEDS: lisinopriL 10 MG TABLET PO SCH (08:17)
[2021-07-29] MEDS: Aspirin Enteric Coated 81 MG Tablet PO SCH (08:17)
[2021-07-29] MEDS: amLODIPine 5 MG TABLET PO SCH (16:30)
[2021-07-29] MEDS: Isosorbide MONOnitrate (24 HR) 30 MG TAB.ER.24H PO SCH (16:30)
[2021-07-30] MEDS: *HR* Heparin 5,000 UNIT/ML VIAL SQ SCH ×2 (05:22→17:40)
[2021-07-30] MEDS: Budesonide/Formoterol 160/4.5 1 PUFF INH IH SCH (07:49)
[2021-07-30] MEDS: Aspirin Enteric Coated 81 MG Tablet PO SCH (08:38)
[2021-07-30] MEDS: amLODIPine 5 MG TABLET PO SCH (08:39)
[2021-07-30] MEDS: Isosorbide MONOnitrate (24 HR) 30 MG TAB.ER.24H PO SCH (08:39)
[2021-07-30] MEDS: lisinopriL 10 MG TABLET PO SCH (08:52)
[2021-07-30 12:34] LABS: Influenza A PCR Negative (Negative); Influenza B PCR Negative (Negative); Resp. Syncytial Virus PCR Negative (Negative)
[2021-07-30 13:08] LABS: SARS-CoV-2 by PCR (In House) Negative (Negative)
[2021-07-30 16:36] VITALS: BP 100/55; PULSE 54; TEMP 98.1
[2021-07-30 20:02] VITALS: O2SAT 97
== END 2021-07-30 20:50 | disposition other institution (70) ==
LOC: 3BNU → SUATTDRO 20:54
PROVIDERS: ADMIT Student in an Organized Health Care Education/Training Program; ATTEND Internal Medicine